=== PATIENT | female | born 1965 | race Caucasian/White ===

== ENCOUNTER → 2020-11-14 | Outpatient (CLI) | payer OTHER ==
[~2020-11-14] VITALS: Ht 162.6 cm; Wt 82.6 kg
[~2020-11-14] MED LIST: ALDACTONE100 MG PO; ARMOUR THYROID30 M1 PO; ASA81BEC PO; ASPIRIN81 M2 PO; BENZONATATE100 MG PO; CHANTIX1 MG PO; CLARITIN10 M3 PO; CULTURELLE1 EACH PO; CYMBALTA60 MG PO; DAILY VALUE1 EAC1 PO; FIBER 6 TABLE1000 MG PO; FLONASE 0.05%50 MCG NASAL; FUROSEMIDE 80 M80 M1 PO; GABAPENTIN; GLIMEPIRIDE4 MG PO; GLUCOPHAGE500 MG PO; HYDROXYZINE HCL25 M2 PO; IBUPROFEN 600600 M1 PO; KLOR-CON 10 ER10 MEQ PO; LANTUS SC; LEVEMIR100 UNIT/1 SUBQ; LEVOTHROID; LEXAPRO20 MG PO; MACROBID 100 M100 M1 PO; MEDROLDOSEPACK PO; METFORMIN; METOCLOPRAMIDE; METOCLOPRAMIDE 55 MG PO; NEPHROCAPS SOFT1 CAP PO; NEXIUM; NEXIUM20 MG PO; NORCO 5-325 TA1 EACH PO; OFLOXACIN5 M1 OPHTHALMIC; OMEPRAZOLE20 M2 PO; PAIN; PANTOPRAZOLE SO40 M1 PO; PHENERGAN 25 MG25 M1 PO; PREDNISONE50 MG PO; PREMPRO 0.625-1 EACH PO; PROAIR HFA8.5 GM INH; SPIRONOLACTONE100 M1 PO; SYNJARDY 12.5-1 EACH PO; SYNTHROID100 MCG PO; TIROSINT112 MCG PO; TUMS ULTRA400 MG PO; VENTOLIN HFA 1818 GM INH; VITAMIN B-12100 MCG IM; WATER PILL; ZOCOR; ZOCOR40 MG PO; ZOFRAN4 MG SUBLING
--- NOTE | 2020-11-16 08:09 | P ---
[facility] [place] [address] PROCEDURE REPORT Name: CECILIA DELA CRUZ Room #: REG JEROME Jl#: [id number] Admission: 11/14/20 Attend Phys: Greg Fernandez Discharge: Date of : 61 Report #: [id number] THIS REPORT FOR: cc: Lisa Rincon MD, Carrie W. MD McElhinney, Christian C. MD ~ DOC #: [id number] cc: MD Greg Harrison MD DATE OF SERVICE: 11/14/2020 PROCEDURE PERFORMED: Upper endoscopy with biopsies and esophageal dilation. HISTORY OF PRESENT ILLNESS: The patient is a 55-year-old female who is followed by my partner, Dr. Taveras in the past who is now retired. She has a long history of gastroparesis, gastroesophageal reflux disease despite taking Nexium 40 mg a day she is using Tums on a regular basis. Also, reports intermittent dysphagia. Last upper endoscopy by Dr. Taveras in 2013 showed a diffuse gastritis, small to moderate size hiatal hernia. Biopsies were negative for Cobb's esophagus and a Schatzki's ring was noted. The patient had been on Reglan, but caused side effects in the past. SHE IS ALLERGIC TO ERYTHROMYCIN and at one time was on domperidone as well, but was not working well for her gastroparesis. DESCRIPTION OF PROCEDURE: The risks and benefits of the procedure were explained to the patient, those risks including but not limited to bleeding, perforation and the risk of sedation. She understood these risks and gave informed consent. Sedation was given using propofol per anesthesia. Next, using a standard Olympus upper endoscope, the scope was placed in the patient's mouth and advanced under direct vision through the esophagus, stomach and into the second portion of the duodenum. The upper and mid esophagus was normal. In the distal esophagus; however, there was grade D erosive esophagitis with a mild narrowing in the distal esophagus. Upon entering the stomach, a medium size hiatal hernia was noted. There was a mild gastritis in the gastric body. Biopsies were obtained to rule out H. pylori. The pylorus was normal and patent. There was no food residual. There was a small amount of liquid residual, which was aspirated away. The duodenal bulb, first and second portion were all normal. At this point, the scope was then brought back up into the patient's stomach and a Savary guidewire was inserted through the scope, leaving the guidewire in place as the scope was then withdrawn. Next, a 48-Eritrean Savary dilation of the esophagus was performed without difficulty. The dilator and wire were removed. The scope was reintroduced into the patient's stomach. There was no evidence of mucosal tear after dilation. The scope was then withdrawn and the procedure terminated. The patient tolerated the procedure well. [address] [address] PROCEDURE REPORT Name: CECILIA DELA CRUZ Room #: REG JEROME Parikh#: [id number] Admission: 11/14/20 Attend Phys: Greg Fernandez Discharge: Date of : 61 Report #: [id number] IMPRESSION: 1. Grade D erosive esophagitis. 2. Mild narrowing in distal esophagus. 3. Medium size hiatal hernia. 4. Mild gastritis. RECOMMENDATIONS: 1. Await biopsy results. 2. Observe the patient status post dilation. 3. The patient with severe grade D erosive esophagitis despite being on Nexium once a day. We will likely increase this to b.i.d. and add liquid Carafate at this time. May need to consider repeat upper endoscopy in the near future to rule out the possibility of Cobb's esophagus. The patient would benefit likely from being on a promotility agent, but unfortunately she has been on several in the past in either allergic or cannot tolerate this. Thank you for allowing me to participate in her care. Greg Gallego MD CCM/ZANE <ELECTRONICALLY SIGNED> By: Greg Gallego MD 11/16/20 0809 1113 2310 Greg Gallego MD /francine
--- NOTE | 2020-11-19 18:06 | PATH ---
[facility] [address] [place] [address] PATHOLOGY RPT PROCEDURE Name: CECILIA ALVAREZ Room #: REG JEROME Gama.#: [id number] Admission: 11/14/20 Date of : 61 Discharge: Report #: [id number] Path Case #: [id number] [facility] Accession Number: [id number] . 01 Material submitted: . stomach - GASTRITIS . 01 Clinical history: . R/O H.PYLORI . 02 Diagnosis: Gastric mucosa, "gastritis rule out H. pylori", biopsy: - Mild inactive chronic gastritis with focal mild reactive gastropathy. - H. pylori stain is negative for H. pylori-like organisms. (SCA/db; 11/16/2020) LBQ 11/16/2020 1129 Local . 02 Electronically signed: . Filiberto Baker DO, Pathologist NPI- [id number] . 01 Gross description: . The specimen is received in formalin, labeled "Cecilia Alvarez", "gastritis rule out H. pylori". Received are multiple segments of pale zamora soft tissue ranging in size from 0.2 cm to 0.4 cm. The specimen is entirely submitted in cassette A1.(SNA; 11/15/2020) POLO/MEENA 11/15/2020 0959 Local . 02 Pathologist provided ICD-10: K29.50, K31.9 . 02 CPT . 855088, N19945 Specimen Comment: A courtesy copy of this report has been sent to [phone] Specimen Comment: [phone] Specimen Comment: Report sent to / DR CASH Specimen Comment: A duplicate report has been generated due to demographic updates. Performed at: 01 [facility] [address] [id number] MD Maxx Chahal MD Phone: [phone] Performed at: 02 [place] [id number] [address] [id number] MD Primitivo Lynn MD Phone: [phone]
== END ==
LOC: GI 09:34
PROVIDERS: ATTEND Specialist
DX: R13.10 Dysphagia, unspecified (principal); K29.50 Unspecified chronic gastritis without bleeding; K31.9 Disease of stomach and duodenum, unspecified; K22.2 Esophageal obstruction; K44.9 Diaphragmatic hernia without obstruction or gangrene; K21.00 Gastro-esophageal reflux disease with esophagitis, without bleeding; I11.0 Hypertensive heart disease with heart failure; I50.9 Heart failure, unspecified; E11.9 Type 2 diabetes mellitus without complications; E03.9 Hypothyroidism, unspecified; J43.9 Emphysema, unspecified; H40.9 Unspecified glaucoma; F41.9 Anxiety disorder, unspecified; Z87.891 Personal history of nicotine dependence; Z98.890 Other specified postprocedural states; Z79.899 Other long term (current) drug therapy; Z88.8 Allergy status to other drugs, medicaments and biological substances
CPT/HCPCS: 62110; 62900

== ENCOUNTER → 2021-01-04 | Outpatient (CLI) | payer OTHER ==
[~2021-01-04] VITALS: Ht 162.6 cm; Wt 84.4 kg
[~2021-01-04] MED LIST changes: +POTASSIUM20 PO; +PROTONIX40 M2 PO; +QUESTRAN PACKET4 GM PO; +URSO FORTE500 M1 PO
--- NOTE | ~2021-01-04 | P ---
[facility] [place] [address] PROCEDURE REPORT Name: CECILIA DELA CRUZ Room #: REG JEROME Parikh#: [id number] Admission: 01/04/21 Attend Phys: Greg Fernandez Discharge: Date of : 61 Report #: [id number] THIS REPORT FOR: cc: Lisa Rincon MD, Carrie W. MD McElhinney, Christian C. MD ~ DOC #: [id number] cc: MD Greg Harrison MD DATE OF SERVICE: 01/04/2021 PROCEDURE PERFORMED: Upper endoscopy with biopsies and esophageal dilation. HISTORY OF PRESENT ILLNESS: The patient is a 55-year-old female with a long history of gastroesophageal reflux disease, underwent an upper endoscopy by myself on 11/14/2020, for persistent heartburn despite being on Nexium on a daily basis, using Tums on a p.r.n. basis. She also is having dysphagia intermittently. She has a history of hiatal hernia as well as gastroparesis. Unfortunately, she has been on Reglan, but could not continue due to side effects. SHE IS ALLERGIC TO ERYTHROMYCIN and at one time was on domperidone as well, but this was not helpful for her gastroparesis. On last endoscopy she was noted to have severe grade D erosive esophagitis. I did perform dilation with 48-Cameroonian Savary at that time, which was somewhat helpful for her dysphagia. We increased her Nexium to b.i.d. and added liquid Carafate. Her implementation manager switched her from Nexium to Protonix b.i.d. within this timeframe as well. She continues to use Tums on a p.r.n. basis. DESCRIPTION OF PROCEDURE: The risks and benefits of the procedure were explained to the patient, those risks including but not limited to bleeding, perforation and the risk of sedation. She understood these risks and gave informed consent. Sedation was given using propofol per anesthesia. Next, using a standard Olympus upper endoscope, the scope was placed in the patient's mouth and advanced under direct vision through the esophagus, stomach and into the second portion of the duodenum. The larynx was normal in appearance. The upper and mid esophagus was normal. In the distal esophagus, there was improvement, grade C erosive esophagitis was noted, but significant improvement from before. Mild Schatzki's ring was noted. A possible short segment of Cobb's was also seen. Biopsies were obtained. Upon entering the stomach, a medium size hiatal hernia was once again noted. Overall, the gastric mucosa was normal. The pylorus was normal and patent. In the duodenal bulb, a small 3 mm polyp was noted. This was removed with cold forceps, otherwise normal. The first and second portion of the duodenum were normal. The scope was then brought back up into the patient's stomach and a Savary guidewire was inserted through the scope, leaving the guidewire in place as the scope was then withdrawn. Next, a 51-Cameroonian Savary dilation of the esophagus was then [address] [address] PROCEDURE REPORT Name: CECILIA DELA CRUZ Room #: REG CLAmos Parikh#: [id number] Admission: 01/04/21 Attend Phys: Greg Fernandez Discharge: Date of : 61 Report #: [id number] performed without difficulty. The wire and dilator were removed. The scope was reintroduced into the patient's stomach. There was no evidence of mucosal tear after dilation. The scope was then withdrawn and the procedure terminated. The patient tolerated the procedure well. IMPRESSION: 1. Possible short segment Cobb's. 2. Grade C erosive esophagitis, but significantly improved compared to last EGD on 11/14/2020. 3. Hiatal hernia. 4. Small duodenal polyp. RECOMMENDATIONS: 1. Await biopsy results. 2. Observe patient post-dilation. 3. Will continue current regimen of b.i.d. PPI therapy and liquid Carafate, using Tums on a p.r.n. basis. I explained to the patient this is a difficult situation because of her history of Abdifatah fundoplication. I would not recommend fundoplication surgery and she unfortunately has been not able to tolerate promotility agents; therefore, would continue current regimen. Thank you for allowing me to participate in her care. Greg Gallego MD CCM/RIANNA/RU By: 0939 2030 Greg Gallego MD /nt
--- NOTE | 2021-01-08 19:07 | PATH ---
[facility] [place] [address] PATHOLOGY RPT PROCEDURE Name: CECILIA ALVAREZ Room #: REG JEROME Natan.#: [id number] Admission: 01/04/21 Date of : 61 Discharge: Report #: [id number] Path Case #: [id number] [facility] Accession Number: [id number] . 01 Material submitted: . PART A: duodenum - BX DUODENAL POLYP PART B: esophagus - BX DISTAL ESOPHAGUS R/O BARRETTS. Modifiers: distal . 01 Clinical history: . EGD GERD . 01 Frozen section diagnosis: . . /QMS . 02 Diagnosis: A. Polyp, duodenal polyp, endoscopic biopsy: - Hyperplastic polyp with gastric fundic-type mucosa. - Negative for dysplasia. . B. Gastroesophageal mucosa, distal esophagus R/O Cobb's, endoscopic biopsy: - Focal gastric cardia-type mucosa with mild acute and chronic inflammation. - Squamous mucosa with mild to moderate acute esophagitis, GMS fungal special stain pending to be reported as an addendum. - Negative for intestinal metaplasia or dysplasia. (IUV:nessa; 01/08/2021) QMS 01/08/2021 1421 Local . 02 Electronically signed: . Sonia Luis MD, Pathologist NPI- [id number] . 01 Gross description: . A. Received in formalin labeled "Cecilia Alvarez, MAGDALENO duodenal polyp" is a fragment of zamora-brown soft tissue measuring 0.3 x 0.3 x 0.1 cm. The specimen is submitted entirely in A1. . B. Received in formalin labeled "Cecilia Alvarez, BX distal esophagus rule out Cobb's" are 2 fragments of zamora-brown soft tissue measuring in aggregate 0.4 x 0.2 x 0.1 cm. The specimen is submitted entirely in B1. ([facility]; 01/06/2021) [facility] 01/06/2021 0919 Local . 02 Pathologist provided ICD-10: [address] [address] PATHOLOGY RPT PROCEDURE Name: CECILIA ALVAREZ JIMI Room #: REG JEROME Parikh#: [id number] Admission: 01/04/21 Date of : 61 Discharge: Report #: [id number] Path Case #: [id number] K63.5, K29.50, K20.90 . 02 CPT . 374941, 000228 Specimen Comment: A courtesy copy of this report has been sent to [phone] Specimen Comment: [phone] Specimen Comment: Report sent to / DR CASH Performed at: [address], [place] [id number] MD Maxx Chahal MD Phone: [phone] Performed at: [address] [id number] MD Sonia Luis MD Phone: [phone]
== END | disposition home or self-care (01) ==
LOC: GI 08:40
PROVIDERS: ATTEND Specialist
DX: K21.00 Gastro-esophageal reflux disease with esophagitis, without bleeding (principal); K29.50 Unspecified chronic gastritis without bleeding; K22.10 Ulcer of esophagus without bleeding; K31.7 Polyp of stomach and duodenum; R13.10 Dysphagia, unspecified; K22.2 Esophageal obstruction; K44.9 Diaphragmatic hernia without obstruction or gangrene; I11.0 Hypertensive heart disease with heart failure; E11.9 Type 2 diabetes mellitus without complications; I50.9 Heart failure, unspecified; E03.9 Hypothyroidism, unspecified; M79.7 Fibromyalgia; J43.9 Emphysema, unspecified; I87.2 Venous insufficiency (chronic) (peripheral); H40.9 Unspecified glaucoma; F41.9 Anxiety disorder, unspecified; Z98.890 Other specified postprocedural states; Z79.899 Other long term (current) drug therapy; Z87.891 Personal history of nicotine dependence; Z90.49 Acquired absence of other specified parts of digestive tract; Z98.51 Tubal ligation status
CPT/HCPCS: 62110; 62900

== ENCOUNTER → 2021-03-06 | Outpatient (CLI) | payer OTHER ==
[~2021-03-06] VITALS: Ht 162.6 cm; Wt 83.5 kg
--- NOTE | 2021-03-08 13:48 | P ---
[facility] [place] [address] PROCEDURE REPORT Name: CECILIA DELA CRUZ Room #: REG FENGAmos Parikh#: [id number] Admission: 03/06/21 Attend Phys: Greg Fernandez Discharge: Date of : 61 Report #: [id number] THIS REPORT FOR: cc: Lisa Rincon MD, Carrie W. MD McElhinney, Christian C. MD ~ cc: Lisa Rincon MD DATE OF SERVICE: 03/06/2021 PROCEDURE PERFORMED: Upper endoscopy with esophageal dilation. HISTORY OF PRESENT ILLNESS: The patient is a 55-year-old female with a complex history of gastroesophageal reflux disease, persistent heartburn despite being on b.i.d. PPI therapy and Carafate. History of continued esophagitis despite above regimen, hiatal hernia, but also has a history of gastroparesis. She has been on Reglan, but could not tolerate due to side effects. SHE IS ALSO ALLERGIC TO ERYTHROMYCIN. At one point was on domperidone, but this was not helpful. She underwent an upper endoscopy by myself with grade D erosive esophagitis earlier this year. We added liquid Carafate. Her last upper endoscopy was on 01/04/2021, still showing grade C erosive esophagitis at that time, but much improved. Possible short segment Cobb's. Biopsies were negative for Cobb's. She was dilated at that time, which was helpful. She has recurrent dysphagia. Plan is for repeat dilation today. DESCRIPTION OF PROCEDURE: The risks and benefits of the procedure were explained to the patient, those risks including but not limited to bleeding, perforation and the risk of sedation. She understood these risks and gave informed consent. Sedation was given using propofol per anesthesia. Next, using a standard Olympus upper endoscope, the scope was placed in the patient's mouth and advanced under direct vision through the esophagus, stomach and into the second portion of the duodenum. The larynx was normal in appearance. The upper and mid esophagus was normal. Grade B erosive esophagitis was noted at this time, which is improved. No evidence of stricture or narrowing. Upon entering the stomach, a small to medium size hiatal hernia was again noted. Overall, the gastric mucosa was normal. The pylorus was normal and patent. The duodenal bulb, first and second portion were all normal. The scope was then brought back up into the patient's stomach and a Savary guidewire was inserted through the scope as the scope was then removed. The guidewire was left in place. Next, a 51-Palestinian Savary dilation of the esophagus was then performed without difficulty. The wire and dilator removed. The scope was reintroduced into the patient's stomach. There was no evidence of mucosal tear after dilation. The scope was then withdrawn and the procedure terminated. The patient tolerated the procedure well. IMPRESSION: [facility] [address] [place] [address] PROCEDURE REPORT Name: CECILIA DELA CRUZ Room #: REG JEROME Parikh#: [id number] Admission: 03/06/21 Attend Phys: Greg Fernandez Discharge: Date of : 61 Report #: [id number] 1. Grade B erosive esophagitis, actually improved from previous upper endoscopies. 2. Hiatal hernia. 3. Otherwise, normal upper endoscopy. RECOMMENDATIONS: 1. Observe the patient post-dilation. 2. Repeat on a p.r.n. basis. 3. Continue current medical regimen. Thank you for allowing me to participate in her care. <ELECTRONICALLY SIGNED> By: Greg Gallego MD 03/08/21 1348 1047 2158 Greg Gallego MD /nt
== END | disposition home or self-care (01) ==
LOC: GI 09:23
PROVIDERS: ATTEND Specialist
DX: R13.10 Dysphagia, unspecified (principal); K21.9 Gastro-esophageal reflux disease without esophagitis; K22.10 Ulcer of esophagus without bleeding; K44.9 Diaphragmatic hernia without obstruction or gangrene; I11.0 Hypertensive heart disease with heart failure; I50.9 Heart failure, unspecified; E11.9 Type 2 diabetes mellitus without complications; E03.9 Hypothyroidism, unspecified; F41.9 Anxiety disorder, unspecified; J43.9 Emphysema, unspecified; M79.7 Fibromyalgia; H40.9 Unspecified glaucoma; Z98.890 Other specified postprocedural states; Z79.899 Other long term (current) drug therapy; Z20.822 Contact with and (suspected) exposure to COVID-19; Z90.49 Acquired absence of other specified parts of digestive tract; Z87.891 Personal history of nicotine dependence; Z98.51 Tubal ligation status; Z88.2 Allergy status to sulfonamides; Z88.8 Allergy status to other drugs, medicaments and biological substances
CPT/HCPCS: 62110; 62900